=== PATIENT | female | born 1960 | race Caucasian/White ===

== ENCOUNTER → 2016-08-29 | Outpatient (CLI) | payer MEDICARE ==
[~2016-08-29] MED LIST: OMNIPAQUE 350 MG/ML, 75ML BOTTLE ONE
== END | disposition home or self-care (01) ==
LOC: RAD 14:30
PROVIDERS: ATTEND Nurse Practitioner Primary Care
DX: J98.11 Atelectasis (principal); I25.10 Atherosclerotic heart disease of native coronary artery without angina pectoris; R59.1 Generalized enlarged lymph nodes
CPT/HCPCS: 71260; Q9967

== ENCOUNTER → 2017-01-26 | Outpatient (CLI) | payer MEDICARE ==
[~2017-01-26] MED LIST changes: -OMNIPAQUE 350 MG/ML, 75ML BOTTLE ONE; +REGADENOSON 0.4 MG/5 ML SYRINGE ONE
== END | disposition home or self-care (01) ==
LOC: CFH 10:55
PROVIDERS: ATTEND Internal Medicine Cardiovascular Disease
DX: I35.1 Nonrheumatic aortic (valve) insufficiency (principal); I25.10 Atherosclerotic heart disease of native coronary artery without angina pectoris; J44.9 Chronic obstructive pulmonary disease, unspecified; F17.200 Nicotine dependence, unspecified, uncomplicated; Z82.49 Family history of ischemic heart disease and other diseases of the circulatory system
CPT/HCPCS: 78452; 93017; 93306; A9502; J2785

== ENCOUNTER 2018-07-03 13:05 | Inpatient (IN) | payer MEDICARE ==
[~2018-07-03] VITALS: Ht 165.1 cm; Wt 94.4 kg
[2018-07-03] MEDS ORDERED: SODIUM CHLORIDE FLUSH 10ML SYR IVF ONE (13:30)
[2018-07-03] MEDS ORDERED: ALBUTEROL/IPRATROPIUM 2.5MG/0.5MG, 3 ML ONE (13:35)
--- NOTE | 2018-07-03 13:35 | NUR ---
CONTACT WITH PT, 58 YR OLD FEMALE SENT FROM [facility] WITH C/O CHEST PAIN, SOB, COUGH, FATIGUE, SORE THROAT, ALL HAS BEEN "GOING ON FOR A WHILE. WOULD GET BETTER AND THEN GET WORSE. PT PLACED ON MONITOR, SR PER MONITOR, AUTO BP, PULSE OX, OXYGEN AT 3LNC. RT AT BEDSIDE FOR TREATMENT.
[2018-07-03 13:58] LABS: BASOPHILS # (AUTO) 0.04 x10^3/uL (0-0.1); BASOPHILS % (AUTO) 0 % (0-1); EOSINOPHILS # (AUTO) 0.09 x10^3/uL (0-0.4); EOSINOPHILS % (AUTO) 1 % (1-7); LYMPHOCYTES # (AUTO) 1.41 x10^3/uL (1-3.4); LYMPHOCYTES % (AUTO) 17 % (22-44); MD NO; MEAN CORPUSCULAR HEMOGLOBIN 31.7 pg (27.0-34.8); MEAN CORPUSCULAR HGB CONC 34.1 g/dL (32.4-35.8); MEAN CORPUSCULAR VOLUME 93.1 fL (80-100); MEAN PLATELET VOLUME 7.5 fL (7.4-10.4); MONOCYTES # (AUTO) 0.41 x10^3/uL (0.2-0.8); MONOCYTES % (AUTO) 5 % (2-9); NEUTROPHILS # (AUTO) 6.46 x10^3/uL (1.8-6.8); NEUTROPHILS % (AUTO) 77 % (42-75); PLATELET COUNT 185 x10^3/uL (130-400); RED BLOOD COUNT 4.89 x10^6/uL (3.82-5.3); RED CELL DISTRIBUTION WIDTH 13.2 % (9.6-15.2)
[2018-07-03 14:09] LABS: ALANINE AMINOTRANSFERASE 45 U/L (12-78); ALBUMIN 3.4 g/dL (3.4-5.0); ANION GAP 7 mmol/L (5-15); CALCIUM 8.3 mg/dL (8.5-10.1); CHLORIDE 106 mmol/L (98-107); CREATININE 0.82 mg/dL (0.55-1.02)
[2018-07-03 14:13] LABS: ALKALINE PHOSPHATASE 116 U/L (45-117); BILIRUBIN,TOTAL 0.4 mg/dL (0.2-1.0); TOTAL PROTEIN 7.3 g/dL (6.4-8.2); TROPONIN I < 0.015 ng/mL (0.000-0.045)
[2018-07-03] MEDS ORDERED: CEFTRIAXONE PMX 1GM/50ML 50 ML IVPB ONE (14:30)
[2018-07-03] MEDS ORDERED: AZITHROMYCIN 500 MG in SODIUM CHLORIDE 0.9% 250 ML IVPB ONE (14:30)
[2018-07-03] MEDS ORDERED: LAMO100T5 PO (15:31)
[2018-07-03] MEDS ORDERED: CARB200T4 PO (15:31)
[2018-07-03] MEDS ORDERED: DOXE10CA PO (15:31)
[2018-07-03] MEDS ORDERED: BUPR100T8 PO (15:31)
[2018-07-03] MEDS ORDERED: TIZA4CAP PO ×2 (15:31→15:50)
[2018-07-03] MEDS ORDERED: RISP2TAB3 PO (15:31)
[2018-07-03] MEDS ORDERED: ALPR1TAB2 PO (15:31)
[2018-07-03] MEDS ORDERED: OXYC10TA6 PO (15:31)
[2018-07-03] MEDS ORDERED: GABA300C10 PO (15:31)
[2018-07-03] MEDS ORDERED: ROSU40TA PO (15:31)
[2018-07-03] MEDS ORDERED: CEFTRIAXONE PMX 1GM/50ML 50 ML ONE (15:33)
[2018-07-03] MEDS ORDERED: TIOT18CA INH (15:44)
[2018-07-03] MEDS ORDERED: RANI150T4 PO (15:48)
--- NOTE | 2018-07-03 15:50 | NUR ---
CALL TO [facility] FOR MEDICATION LIST, VERIFIED WITH PT. IV ROCEPHIN INFUSING ORDERED. 2 SETS OF BLOOD CULTURES IN LAB, PROCESSING. PT CHANGED TO OXY MASK AT 3L R/T "STUFFED UP NOSE" WAITING FOR FURTHER DISPOSITION.
[2018-07-03] MEDS ORDERED: BENZONATATE 100 MG CAPSULE PO ONE (16:30)
[2018-07-03] MEDS ORDERED: BENZONATATE 100 MG CAPSULE ONE (16:37)
[2018-07-03] MEDS ORDERED: LOPE2CAP94 PO (16:51)
[2018-07-03] MEDS ORDERED: ENALAPRILAT 1.25 MG/ML, 2ML IVPush PRN (17:00)
[2018-07-03] MEDS ORDERED: SODIUM CHLORIDE FLUSH 10ML SYR IVF PRN (17:00)
[2018-07-03] MEDS ORDERED: ONDANSETRON 2MG/ML, 2ML IVPush PRN (17:00)
--- NOTE | 2018-07-03 18:25 | NUR ---
PT CONT WITH OXYGEN VIA OXY MASK AT 3L, CONT OCC COUGH, PRODUCTIVE, PER PT "WHITE PHLEGM. REPORT CALLED TO HILDA GALVAN DISCUSSED. PT TO BE TRANSPORTED VIA GURNEY WITH OXYGEN.
[2018-07-03 19:16] VITALS: BP 111/64
[2018-07-03] MEDS: GABAPENTIN 300 MG CAPSULE PO SCH ×2 (19:36→20:16)
[2018-07-03] MEDS: NICOTINE 21 MG/24 HR PATCH.TD24 TD SCH (19:36)
[2018-07-03] MEDS: OXYcodone IR 5MG TABLET PO PRN (19:37)
[2018-07-03] MEDS: ENOXAPARIN 40 MG/0.4 ML SQ SCH (19:37)
[2018-07-03] MEDS: SODIUM CHLORIDE 0.9% 1,000 ML IV SCH (19:37)
[2018-07-03] MEDS: DOXEPIN 10 MG CAPSULE PO SCH ×2 (19:38→21:35)
[2018-07-03] MEDS: ALBUTEROL/IPRATROPIUM 2.5MG/0.5MG, 3 ML NPPB SCH (20:11)
[2018-07-03] MEDS ORDERED: TEMPLATE NON-FORMULARY MED. (Ranitidine Hcl** 150 MG) PO SCH (21:00)
[2018-07-03] MEDS: CARBAMAZEPINE 200 MG TABLET PO SCH (21:34)
[2018-07-03] MEDS: FAMOTIDINE 20 MG TABLET PO SCH (21:34)
[2018-07-03] MEDS: LAMOTRIGINE 100 MG TABLET PO SCH (21:34)
[2018-07-03] MEDS: BUPROPION SR 100 MG TABLET PO SCH (21:35)
[2018-07-03] MEDS: RISPERIDONE 2 MG TABLET PO SCH (21:36)
[2018-07-03] MEDS: TIZANIDINE 4MG TABLET PO PRN (22:53)
[2018-07-04 00:14] VITALS: BP 107/68
[2018-07-04] MEDS: OXYcodone IR 5MG TABLET PO PRN ×6 (00:38→21:33)
[2018-07-04] MEDS: BENZONATATE 100 MG CAPSULE PO PRN ×3 (00:38→16:59)
[2018-07-04] MEDS: CEFTRIAXONE PMX 2GM/50ML 50 ML IV SCH (03:09)
[2018-07-04 05:00] VITALS: BP 110/73
[2018-07-04] MEDS: SODIUM CHLORIDE 0.9% 1,000 ML IV SCH (05:06)
[2018-07-04 05:18] LABS: ALBUMIN 2.7 g/dL (3.4-5.0); ANION GAP 8 mmol/L (5-15); BASOPHILS # (AUTO) 0.03 x10^3/uL (0-0.1); BASOPHILS % (AUTO) 1 % (0-1); CALCIUM 7.3 mg/dL (8.5-10.1); CHLORIDE 106 mmol/L (98-107); EOSINOPHILS # (AUTO) 0.17 x10^3/uL (0-0.4); EOSINOPHILS % (AUTO) 3 % (1-7); LYMPHOCYTES # (AUTO) 2.01 x10^3/uL (1-3.4); LYMPHOCYTES % (AUTO) 36 % (22-44); MD NO; MEAN CORPUSCULAR HEMOGLOBIN 31.2 pg (27.0-34.8); MEAN CORPUSCULAR HGB CONC 33.3 g/dL (32.4-35.8); MEAN CORPUSCULAR VOLUME 93.6 fL (80-100); MEAN PLATELET VOLUME 7.5 fL (7.4-10.4); MONOCYTES # (AUTO) 0.43 x10^3/uL (0.2-0.8); MONOCYTES % (AUTO) 8 % (2-9); NEUTROPHILS # (AUTO) 2.94 x10^3/uL (1.8-6.8); NEUTROPHILS % (AUTO) 53 % (42-75); PLATELET COUNT 173 x10^3/uL (130-400); RED BLOOD COUNT 4.23 x10^6/uL (3.82-5.3); RED CELL DISTRIBUTION WIDTH 13.7 % (9.6-15.2)
[2018-07-04 05:21] LABS: ALANINE AMINOTRANSFERASE 32 U/L (12-78); ALKALINE PHOSPHATASE 95 U/L (45-117); BILIRUBIN,TOTAL 0.1 mg/dL (0.2-1.0); CREATININE 0.82 mg/dL (0.55-1.02); TOTAL PROTEIN 6.1 g/dL (6.4-8.2)
[2018-07-04] MEDS: ALBUTEROL/IPRATROPIUM 2.5MG/0.5MG, 3 ML NPPB SCH ×4 (07:10→19:42)
[2018-07-04 07:20] VITALS: BP 97/61
[2018-07-04] MEDS: TEMPLATE NON-FORMULARY MED. (Tiotropium Bromide** (Spiriva**) 18 MCG) INH SCH (07:50)
[2018-07-04] MEDS: FAMOTIDINE 20 MG TABLET PO SCH ×2 (08:53→21:25)
[2018-07-04] MEDS: ATORVASTATIN 80 MG TABLET PO SCH (08:53)
[2018-07-04] MEDS: CARBAMAZEPINE 200 MG TABLET PO SCH ×2 (08:53→21:25)
[2018-07-04] MEDS: BUPROPION SR 100 MG TABLET PO SCH ×2 (08:53→21:00)
[2018-07-04] MEDS: TIZANIDINE 4MG TABLET PO PRN ×2 (11:02→23:38)
[2018-07-04] MEDS: ALPRazolam 1MG TABLET PO PRN ×3 (12:00→23:41)
[2018-07-04] MEDS: methylPREDNISolone SOD SUCC 125 MG/2 ML IVPush SCH ×2 (12:38→19:58)
[2018-07-04] MEDS: NS + 20MEQ KCL 1,000 ML IV SCH ×2 (12:39→21:59)
[2018-07-04 12:48] VITALS: BP 103/67
[2018-07-04] MEDS: AZITHROMYCIN 500 MG in SODIUM CHLORIDE 0.9% 250 ML IV SCH (16:59)
[2018-07-04] MEDS: SODIUM CHLORIDE NASAL SPRAY 45ML BOTTLE NAS PRN (17:53)
[2018-07-04] MEDS: NICOTINE 21 MG/24 HR PATCH.TD24 TD SCH (19:32)
[2018-07-04] MEDS: ENOXAPARIN 40 MG/0.4 ML SQ SCH (19:32)
[2018-07-04 20:14] VITALS: BP 130/78
[2018-07-04] MEDS: RISPERIDONE 2 MG TABLET PO SCH (21:25)
[2018-07-04] MEDS: GABAPENTIN 300 MG CAPSULE PO SCH (21:25)
[2018-07-04] MEDS: DOXEPIN 10 MG CAPSULE PO SCH (21:25)
[2018-07-04] MEDS: LAMOTRIGINE 100 MG TABLET PO SCH (21:26)
[2018-07-05] MEDS: BENZONATATE 100 MG CAPSULE PO PRN ×3 (00:12→17:31)
[2018-07-05 00:51] VITALS: BP 133/83
[2018-07-05] MEDS: SODIUM CHLORIDE NASAL SPRAY 45ML BOTTLE NAS PRN (01:09)
[2018-07-05] MEDS: OXYcodone IR 5MG TABLET PO PRN ×6 (02:11→21:11)
[2018-07-05] MEDS: CEFTRIAXONE PMX 2GM/50ML 50 ML IV SCH (03:09)
[2018-07-05] MEDS: TEMAZEPAM 15 MG CAPSULE PO PRN ×2 (03:21→21:11)
[2018-07-05] MEDS: methylPREDNISolone SOD SUCC 125 MG/2 ML IVPush SCH ×2 (03:47→16:36)
[2018-07-05] MEDS: NS + 20MEQ KCL 1,000 ML IV SCH ×2 (06:13→13:34)
[2018-07-05] MEDS: ALBUTEROL/IPRATROPIUM 2.5MG/0.5MG, 3 ML NPPB SCH ×4 (06:39→18:29)
[2018-07-05] MEDS: ALPRazolam 1MG TABLET PO PRN ×2 (07:35→15:23)
[2018-07-05 07:56] VITALS: BP 124/64
[2018-07-05] MEDS: TEMPLATE NON-FORMULARY MED. (Tiotropium Bromide** (Spiriva**) 18 MCG) INH SCH (09:00)
[2018-07-05] MEDS: BUPROPION SR 100 MG TABLET PO SCH ×2 (09:41→21:00)
[2018-07-05] MEDS: FAMOTIDINE 20 MG TABLET PO SCH ×2 (09:41→21:11)
[2018-07-05] MEDS: ATORVASTATIN 80 MG TABLET PO SCH (09:41)
[2018-07-05] MEDS: CARBAMAZEPINE 200 MG TABLET PO SCH ×2 (09:41→21:11)
[2018-07-05 15:59] VITALS: BP 125/77
[2018-07-05] MEDS: AZITHROMYCIN 500 MG in SODIUM CHLORIDE 0.9% 250 ML IV SCH (17:31)
[2018-07-05 19:15] VITALS: BP 134/77
[2018-07-05] MEDS: NICOTINE 21 MG/24 HR PATCH.TD24 TD SCH (19:24)
[2018-07-05] MEDS: ENOXAPARIN 40 MG/0.4 ML SQ SCH (19:24)
[2018-07-05] MEDS: DOXEPIN 10 MG CAPSULE PO SCH (21:10)
[2018-07-05] MEDS: RISPERIDONE 2 MG TABLET PO SCH (21:11)
[2018-07-05] MEDS: LAMOTRIGINE 100 MG TABLET PO SCH (21:11)
[2018-07-05] MEDS: GABAPENTIN 300 MG CAPSULE PO SCH (21:21)
[2018-07-06] MEDS: ALPRazolam 1MG TABLET PO PRN ×3 (00:13→15:10)
[2018-07-06] MEDS: TIZANIDINE 4MG TABLET PO PRN (00:13)
[2018-07-06 00:58] VITALS: BP 134/82
[2018-07-06] MEDS: OXYcodone IR 5MG TABLET PO PRN ×5 (01:23→19:39)
[2018-07-06] MEDS: CEFTRIAXONE PMX 2GM/50ML 50 ML IV SCH (03:51)
[2018-07-06] MEDS: methylPREDNISolone SOD SUCC 125 MG/2 ML IVPush SCH (03:51)
[2018-07-06] MEDS: ALBUTEROL/IPRATROPIUM 2.5MG/0.5MG, 3 ML NPPB SCH ×5 (07:10→19:28)
[2018-07-06 07:43] VITALS: BP 124/87
[2018-07-06 08:33] LABS: BASOPHILS # (AUTO) 0.02 x10^3/uL (0-0.1); BASOPHILS % (AUTO) 0 % (0-1); EOSINOPHILS % (AUTO) 0 % (1-7); LYMPHOCYTES # (AUTO) 1.21 x10^3/uL (1-3.4); LYMPHOCYTES % (AUTO) 12 % (22-44); MD NO; MEAN CORPUSCULAR HEMOGLOBIN 30.9 pg (27.0-34.8); MEAN CORPUSCULAR HGB CONC 33.3 g/dL (32.4-35.8); MEAN CORPUSCULAR VOLUME 92.6 fL (80-100); MEAN PLATELET VOLUME 7.4 fL (7.4-10.4); MONOCYTES # (AUTO) 0.44 x10^3/uL (0.2-0.8); MONOCYTES % (AUTO) 4 % (2-9); NEUTROPHILS # (AUTO) 8.86 x10^3/uL (1.8-6.8); NEUTROPHILS % (AUTO) 84 % (42-75); PLATELET COUNT 254 x10^3/uL (130-400); RED BLOOD COUNT 4.29 x10^6/uL (3.82-5.3); RED CELL DISTRIBUTION WIDTH 13.6 % (9.6-15.2)
[2018-07-06] MEDS: ATORVASTATIN 80 MG TABLET PO SCH (08:35)
[2018-07-06] MEDS: BENZONATATE 100 MG CAPSULE PO PRN ×2 (08:35→16:57)
[2018-07-06] MEDS: CARBAMAZEPINE 200 MG TABLET PO SCH ×2 (08:36→21:06)
[2018-07-06] MEDS: FAMOTIDINE 20 MG TABLET PO SCH ×2 (08:36→21:08)
[2018-07-06] MEDS: BUPROPION SR 100 MG TABLET PO SCH ×2 (08:36→21:00)
[2018-07-06 08:39] LABS: ANION GAP 6 mmol/L (5-15); CALCIUM 8.5 mg/dL (8.5-10.1); CHLORIDE 107 mmol/L (98-107); CREATININE 0.74 mg/dL (0.55-1.02)
[2018-07-06] MEDS: TEMPLATE NON-FORMULARY MED. (Tiotropium Bromide** (Spiriva**) 18 MCG) INH SCH (09:00)
[2018-07-06] MEDS: NS + 20MEQ KCL 1,000 ML IV SCH (10:15)
[2018-07-06 13:06] VITALS: BP 113/77
[2018-07-06] MEDS: SODIUM CHLORIDE NASAL SPRAY 45ML BOTTLE NAS PRN (15:18)
[2018-07-06] MEDS: AZITHROMYCIN 500 MG in SODIUM CHLORIDE 0.9% 250 ML IV SCH (16:57)
[2018-07-06] MEDS: NICOTINE 21 MG/24 HR PATCH.TD24 TD SCH (19:40)
[2018-07-06] MEDS: ENOXAPARIN 40 MG/0.4 ML SQ SCH (19:40)
[2018-07-06 20:40] VITALS: BP 143/88
[2018-07-06] MEDS: GABAPENTIN 300 MG CAPSULE PO SCH (21:05)
[2018-07-06] MEDS: DOXEPIN 10 MG CAPSULE PO SCH (21:05)
[2018-07-06] MEDS: LAMOTRIGINE 100 MG TABLET PO SCH (21:05)
[2018-07-06] MEDS: RISPERIDONE 2 MG TABLET PO SCH (21:05)
[2018-07-06] MEDS: TEMAZEPAM 15 MG CAPSULE PO PRN (21:06)
[2018-07-07] MEDS: NS + 20MEQ KCL 1,000 ML IV SCH (00:32)
[2018-07-07 01:30] VITALS: BP 131/87
[2018-07-07] MEDS: BENZONATATE 100 MG CAPSULE PO PRN ×2 (01:40→12:02)
[2018-07-07] MEDS: ALPRazolam 1MG TABLET PO PRN ×2 (01:40→08:00)
[2018-07-07] MEDS: CEFTRIAXONE PMX 2GM/50ML 50 ML IV SCH (03:37)
[2018-07-07] MEDS: OXYcodone IR 5MG TABLET PO PRN ×4 (03:53→16:18)
[2018-07-07 07:07] VITALS: BP 138/88
[2018-07-07] MEDS: FAMOTIDINE 20 MG TABLET PO SCH (08:00)
[2018-07-07] MEDS: TEMPLATE NON-FORMULARY MED. (Tiotropium Bromide** (Spiriva**) 18 MCG) INH SCH (08:00)
[2018-07-07] MEDS: CARBAMAZEPINE 200 MG TABLET PO SCH (08:00)
[2018-07-07] MEDS: ATORVASTATIN 80 MG TABLET PO SCH (08:00)
[2018-07-07] MEDS: BUPROPION SR 100 MG TABLET PO SCH (08:00)
[2018-07-07] MEDS: ALBUTEROL/IPRATROPIUM 2.5MG/0.5MG, 3 ML NPPB SCH ×3 (08:25→14:25)
[2018-07-07] MEDS: SODIUM CHLORIDE NASAL SPRAY 45ML BOTTLE NAS PRN (10:14)
[2018-07-07] MEDS: TIZANIDINE 4MG TABLET PO PRN (12:02)
[2018-07-07 13:36] VITALS: BP 146/88
[2018-07-07] MEDS ORDERED: NICO-485 TD (14:41)
[2018-07-07] MEDS ORDERED: NICO-487 TD (14:41)
[2018-07-07] MEDS ORDERED: NICO-486 TD (14:41)
[2018-07-07] MEDS ORDERED: CEFD300C37 PO (14:41)
[2018-07-07] MEDS ORDERED: METH4TAB2 PO (14:41)
[2018-07-07] MEDS ORDERED: BENZ-17 PO (14:41)
[2018-07-07] MEDS ORDERED: IPRA3AMP30 NPPB (14:43)
[2018-07-07] MEDS: AZITHROMYCIN 500 MG in SODIUM CHLORIDE 0.9% 250 ML IV SCH (16:40)
== END 2018-07-07 16:54 | disposition home or self-care (01) | DRG 177 ==
LOC: ED 14:24 → EDIP 16:32 → 3NE 17:29
PROVIDERS: ADMIT Internal Medicine; ATTEND Internal Medicine
DX: J15.6 Pneumonia due to other Gram-negative bacteria (principal); J96.01 Acute respiratory failure with hypoxia; J44.0 Chronic obstructive pulmonary disease with (acute) lower respiratory infection; J44.1 Chronic obstructive pulmonary disease with (acute) exacerbation; J98.11 Atelectasis; J18.9 Pneumonia, unspecified organism; E78.5 Hyperlipidemia, unspecified; E87.6 Hypokalemia; F17.210 Nicotine dependence, cigarettes, uncomplicated; F31.9 Bipolar disorder, unspecified; G47.00 Insomnia, unspecified; Z90.710 Acquired absence of both cervix and uterus
CPT/HCPCS: 36415; 71045; 80048; 80053; 83605; 83735; 83880; 84100; 84145; 84443; 84484; 85025; 85379; 87040; 93005; 93306; 94640; 96365; 96367; 99285; G0378; J0456; J0696; J1650; J3480; J7620; J2930; J7030; J7050; J7512

== ENCOUNTER 2019-12-21 13:57 | Emergency (ER) | payer MEDICARE, OTHER ==
[~2019-12-21] VITALS: Ht 165.1 cm; Wt 98.0 kg
[~2019-12-21 13:57] MED LIST changes: +ALPR1TAB2 PO; +BENZ-17 PO; +BUPR100T8 PO; +CARB200T4 PO; +CEFD300C37 PO; +DOXE10CA PO; +GABA300C10 PO; +IPRA3AMP30 NPPB; +LAMO100T5 PO; +LOPE-114 PO; +METH4TAB2 PO; +NICO-485 TD; +NICO-486 TD; +NICO-487 TD; +OXYC10TA6 PO; +RANI150T4 PO; -REGADENOSON 0.4 MG/5 ML SYRINGE ONE; +RISP2TAB3 PO; +ROSU40TA PO; +TIOT18CA INH; +TIZA4CAP PO
--- NOTE | 2019-12-21 14:00 | NUR ---
BIBA FROM HOME C/O SOB, CENTER CHEST PAIN, AND N/V SINCE THIS MORNING. CARDIAC AND VITAL SIGNS MONITORS PLACED. FALL PRECAUTIONS IN PLACE, AND CALL LIGHT WITHIN REACH.
[2019-12-21 14:38] LABS: BASOPHILS # (AUTO) 0.01 x10^3/uL (0-0.1); BASOPHILS % (AUTO) 0 % (0-1); EOSINOPHILS # (AUTO) 0.08 x10^3/uL (0-0.4); EOSINOPHILS % (AUTO) 1 % (1-7); LYMPHOCYTES # (AUTO) 1.93 x10^3/uL (1-3.4); LYMPHOCYTES % (AUTO) 15 % (22-44); MD NO; MEAN CORPUSCULAR HEMOGLOBIN 32.1 pg (27.0-34.8); MEAN CORPUSCULAR HGB CONC 33.9 g/dL (32.4-35.8); MEAN CORPUSCULAR VOLUME 94.6 fL (80-100); MEAN PLATELET VOLUME 7.1 fL (7.4-10.4); MONOCYTES # (AUTO) 0.22 x10^3/uL (0.2-0.8); MONOCYTES % (AUTO) 2 % (2-9); NEUTROPHILS # (AUTO) 10.88 x10^3/uL (1.8-6.8); NEUTROPHILS % (AUTO) 83 % (42-75); PLATELET COUNT 385 x10^3/uL (130-400); RED BLOOD COUNT 4.88 x10^6/uL (3.82-5.3); RED CELL DISTRIBUTION WIDTH 13.8 % (9.6-15.2)
[2019-12-21 14:47] LABS: ALANINE AMINOTRANSFERASE 33 U/L (12-78); ALBUMIN 3.5 g/dL (3.4-5.0); ANION GAP 6 mmol/L (5-15); CALCIUM 8.4 mg/dL (8.5-10.1); CHLORIDE 106 mmol/L (98-107); CREATININE 0.73 mg/dL (0.55-1.02)
[2019-12-21 14:51] LABS: ALKALINE PHOSPHATASE 132 U/L (45-117); BILIRUBIN,TOTAL 0.4 mg/dL (0.2-1.0); TOTAL PROTEIN 7.4 g/dL (6.4-8.2); TROPONIN I < 0.015 ng/mL (0.000-0.045)
[2019-12-21] MEDS ORDERED: ONDANSETRON 2MG/ML, 2ML ONE (15:18)
[2019-12-21] MEDS ORDERED: MORPHINE SULFATE 4 MG/ML, 1ML ONE ×2 (15:19→16:46)
[2019-12-21] MEDS: MORPHINE SULFATE 4 MG/ML, 1ML IVPush PRN ×2 (15:23→16:48)
--- NOTE | 2019-12-21 15:25 | NUR ---
PT C/O CHEST PAIN 02/20. UPDATED ERMD, AND MEDICATED PER JUL.
[2019-12-21] MEDS ORDERED: ONDANSETRON 2MG/ML, 2ML IVPush ONE (15:30)
--- NOTE | 2019-12-21 15:57 | NUR ---
PT REPORTS PAIN IS A 2/10 AT THIS TIME. RESTING ON GURNEY IN NAD. VSS.
--- NOTE | 2019-12-21 16:20 | NUR ---
PT TRANSPORTED TO CT.
[2019-12-21] MEDS ORDERED: OMNIPAQUE 350 MG/ML, 75ML BOTTLE ONE (16:36)
[2019-12-21 16:40] VITALS: BP 138/70
--- NOTE | 2019-12-21 16:43 | NUR ---
ASSISTED PT TO RESTROOM.
[2019-12-21] MEDS ORDERED: MAALOX/HYOSCYAMINE/LIDOCAINE 45 ML BTL ONE (16:55)
[2019-12-21] MEDS ORDERED: MAALOX/HYOSCYAMINE/LIDOCAINE 45 ML BTL PO ONE (17:00)
--- NOTE | 2019-12-21 17:27 | NUR ---
TASK RN COVERING PRIMARY RN MEAL BREAK. ADD ON ORDER FOR 2ND TROPONIN. AWAITING LAB DRAW AND RESULTS.
--- NOTE | 2019-12-21 17:40 | NUR ---
DIRECTOR OF REHABILITATIVE SERVICES IN TO DRAW.
[2019-12-21 18:11] LABS: TROPONIN I < 0.015 ng/mL (0.000-0.045)
== END 2019-12-21 18:47 | disposition home or self-care (01) ==
LOC: ED 16:55
DX: R07.89 Other chest pain (principal); R06.02 Shortness of breath; R11.2 Nausea with vomiting, unspecified
CPT/HCPCS: 36415; 71045; 71275; 80053; 83880; 84484; 85025; 85379; 93005; 96374; 96375; 96376; 99285; J2270; J2405; Q9967

== ENCOUNTER → 2020-09-16 | Outpatient (CLI) | payer MEDICARE ==
[~2020-09-16] MED LIST changes: -NICO-487 TD; +NICO-587 TD; +REGADENOSON 0.4 MG/5 ML SYRINGE ONE; -RISP2TAB3 PO; +RISP2TAB80 PO
== END | disposition home or self-care (01) ==
LOC: CFH 08:07
PROVIDERS: ATTEND Internal Medicine Cardiovascular Disease
DX: I25.10 Atherosclerotic heart disease of native coronary artery without angina pectoris (principal); R00.2 Palpitations
CPT/HCPCS: 78452; 93017; A9502; J2785

== ENCOUNTER → 2020-09-29 | Outpatient (CLI) | payer MEDICARE ==
[~2020-09-29] MED LIST changes: -REGADENOSON 0.4 MG/5 ML SYRINGE ONE
== END | disposition home or self-care (01) ==
LOC: CFH 13:03
PROVIDERS: ATTEND Nurse Practitioner Family
DX: Z12.2 Encounter for screening for malignant neoplasm of respiratory organs (principal); R91.1 Solitary pulmonary nodule; F17.210 Nicotine dependence, cigarettes, uncomplicated
CPT/HCPCS: 71271

== ENCOUNTER 2020-10-08 10:31 | Emergency (ER) | payer MEDICARE ==
[~2020-10-08] VITALS: Ht 165.1 cm; Wt 97.7 kg
--- NOTE | 2020-10-08 11:06 | NUR ---
PT C/O INCREASE FATIGUE AND LIGHT HEADED STARTING NIGHT BEFORE LAST. PT DENIES N/V/D, CP. PT WEARING BASELINE 2L OXYGEN VIA NC. PT CONNECTED TO MONITORING. CALL LIGHT IN REACH.
[2020-10-08 11:08] VITALS: BP 126/59
--- NOTE | 2020-10-08 11:36 | NUR ---
PT AMBULATED TO RESTROOM WITH STEADY GAIT TO PROVIDE URINE SAMPLE. UA COLLECTED AND SENT TO LAB.
[2020-10-08 11:45] LABS: BASOPHILS % (AUTO) 1 % (0-1); EOSINOPHILS % (AUTO) 1 % (1-7); LYMPHOCYTES % (AUTO) 26 % (22-44); MEAN CORPUSCULAR HEMOGLOBIN 31.6 pg (27.0-34.8); MEAN CORPUSCULAR HGB CONC 34.6 g/dL (32.4-35.8); MEAN PLATELET VOLUME 6.8 fL (7.4-10.4); MONOCYTES % (AUTO) 7 % (2-9); NEUTROPHILS % (AUTO) 66 % (42-75); PLATELET COUNT 320 x10^3/uL (130-400); RED BLOOD COUNT 4.71 x10^6/uL (3.82-5.3); RED CELL DISTRIBUTION WIDTH 14.1 % (9.6-15.2)
[2020-10-08 11:48] LABS: MD NO
[2020-10-08 11:56] LABS: ALANINE AMINOTRANSFERASE 30 U/L (12-78); ALBUMIN 3.4 g/dL (3.4-5.0); ANION GAP 5 mmol/L (5-15); CALCIUM 8.8 mg/dL (8.5-10.1); CHLORIDE 106 mmol/L (98-107); CREATININE 0.68 mg/dL (0.55-1.02)
[2020-10-08 12:00] LABS: ALKALINE PHOSPHATASE 150 U/L (45-117); BILIRUBIN,TOTAL 0.2 mg/dL (0.2-1.0); TOTAL PROTEIN 7.1 g/dL (6.4-8.2); TROPONIN I < 0.015 ng/mL (0.000-0.045)
[2020-10-08 12:00] LABS: MICROSCOPIC INDICATED
--- NOTE | 2020-10-08 12:25 | NUR ---
ALL RESULTS ARE BACK AT THIS TIME. CHART UP FOR RECHECK.
--- NOTE | 2020-10-08 15:11 | NUR ---
PT LEFT PRIOR TO RECEIVED DC PAPERWORK.
== END 2020-10-08 15:13 | disposition home or self-care (01) ==
LOC: ED 12:16
DX: R06.00 Dyspnea, unspecified (principal); R53.1 Weakness; R53.83 Other fatigue; R11.0 Nausea; R07.9 Chest pain, unspecified; F17.210 Nicotine dependence, cigarettes, uncomplicated; I25.10 Atherosclerotic heart disease of native coronary artery without angina pectoris
CPT/HCPCS: 36415; 71045; 80053; 81001; 83880; 84484; 85025; 87086; 93005; 99285; 99406